=== PATIENT | female | born 1980 | race Caucasian/White ===

== ENCOUNTER 2017-02-06 17:00 | Inpatient (IN) | payer MEDICAID ==
[2017-02-06] MEDS ORDERED: HOME MEDICATION LIST NEEDED 1 EA EACH MISC ONE (17:52)
[2017-02-06] MEDS ORDERED: OXYTOCIN/NORMAL SALINE 30 UNIT/500 ML BAG IV SCH ×2 (17:52→19:00)
[2017-02-06] MEDS ORDERED: FENTANYL 100 MCG/2 ML VIAL IV ONE (17:52)
[2017-02-06] MEDS ORDERED: LIDOCAINE HCL/PF 1% 30 ML VIAL SUBCUT PRN (17:52)
[2017-02-06] MEDS ORDERED: MISOPROSTOL 200 MCG TABLET PO PRN (17:52)
[2017-02-06] MEDS ORDERED: TERBUTALINE SULFATE 1 MG/ML VIAL SQ PRN (18:48)
[2017-02-06] MEDS ORDERED: LACTATED RINGERS 1,000 ML IV SCH (19:00)
--- NOTE | 2017-02-06 19:04 | PROGRESS NOTE:Antepartum ---
Assessment and Plan - Date of Encounter Date of Encounter: 02/06/17 (1) Post term , 41 weeks Status: Acute Assessment and plan: Pt has reactive NST at 41 1/7weeks. She has been educated about post term and she is comfortable with induction. NST yesterday was reactive. Garg score was 9 and favorable for Pit induction. 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 Uncomplicated . She transferred care at 36 weeks. Had late U/S at 35 weeks documenting good grothw as she measured 2 cm less than dates consistently. EDC by 8 week U/S. 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
[2017-02-06] MEDS: LACTATED RINGERS 1,000 ML IV ONE ×2 (19:20→22:36)
[2017-02-06 19:55] LABS: RED BLOOD COUNT 4.34 X 10^6uL (4.20-6.10); WHITE BLOOD COUNT 9.7 X 10^3uL (3.9-10.7)
[2017-02-06 19:56] LABS: HEMATOCRIT 38.9 % (36.0-48.0); HEMOGLOBIN 13.1 g/dL (12.0-16.0); MEAN CORPUS. HGB CONCENTRATION 33.6 g/dL (32.0-36.0); MEAN CORPUSCULAR HEMOGLOBIN 30.2 pg (29.0-35.0); PLATELET COUNT 231 X 10^3uL (130-440); RED CELL DISTRIBUTION WIDTH 13.5 % (11.5-14.5)
[2017-02-06 19:57] LABS: BASOPHIL# 0.1 X 10^3uL (0.0-0.1); BASOPHILS 0.6 % (0.0-2.0); EOSINOPHILS 1.3 % (0.0-6.0); EOSINOPHILS# 0.1 X 10^3uL (0.0-0.4); LYMPHOCYTES 23.8 % (20.0-40.0); LYMPHOCYTES# 2.3 X 10^3uL (0.8-3.8); MEAN PLATELET VOLUME 8.4 fL (7.4-10.4); MONOCYTES 7.3 % (2.0-10.0); MONOCYTES# 0.7 X 10^3uL (0.2-1.0); NEUTROPHILS# 6.5 X 10^3uL (2.6-6.7)
[2017-02-06] MEDS: ONDANSETRON HCL 4 MG/2 ML VIAL IV PRN (21:59)
[2017-02-06 22:06] LABS: ABO GROUP TYPE O; ANTIBODY SCREEN NEGATIVE; RH TYPE POSITIVE
--- NOTE | 2017-02-06 22:06 | PROGRESS NOTE:Antepartum ---
Assessment and Plan - Date of Encounter Date of Encounter: 02/06/17 (1) Post term , 41 weeks Status: Acute Assessment and plan: Pt has reactive NST at 41 1/7weeks. She has been educated about post term and she is comfortable with induction. NST yesterday was reactive. Garg score was 9 and favorable for Pit induction. 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 Uncomplicated . She transferred care at 36 weeks. Had late U/S at 35 weeks documenting good growth as she measured 2 cm less than dates consistently. EDC by certain LMP EDC of and confirmed with 8 week U/S. PRENATALS: O+, Ab screen neg, RI, GC Neg, H/H .7 HIV NR, Hep B neg, GC, CT neg. GBS NEG., CF neg carrier, Nl trisomy screen. MSAFP Neg, 1` hour GTT 127, PAP HPV neg 2015 EDC by 8 11/2302/01/17 Adacel 12/06/16. Flu ? PMHX: None PSHX: Appy SHX: No TOB, ETOH, MJ, IVDA, BF Gómez FHX: Mom CAD at 74, HTN. Dad Skin [place] Antepartum ROS: contractions (rare), movement normal, no vaginal bleeding , no loss of fluid, no headache, no shortness of breath, no swelling HAND CLIPPER: Antepartum PN Obj Exam - Latest Vital Signs and I&O Latest Vital Signs/I&O: Vital Signs Temp 36.5 C 02/06/17 20:55 Pulse 69 02/06/17 20:55 Resp 18 02/06/17 20:55 BP 118/78 02/06/17 20:55 Pulse Ox 98 02/06/17 17:05 Intake & Output 02/06/17 02/06/17 02/07/17 05:59 17:59 05:59 Intake Total 125 Output Total 650 Balance -525 Weight 66.678 kg 66.678 kg Intake: IV 125 Lr 1000 ml Bag 1,000 ml 125 UD IV .[facility] ONE Rx#: [id number] Output: Urine 650 Other: Urine Appearance Clear Urine Color Pale Yellow Voiding Method Toilet # Voids 1 - Exam Heart Monitor: category I Lungs: Bilateral: normal Heart Rhythm: Present: regular Heart sounds: Absent: [place] Extremities: Absent: edema Fundal height (cm): 38 Cervical Dilatation Degree: 1 Cervical Effacement Percentage: 90 Station: -1 - Lab Labs: Laboratory Last Values WBC 9.7 X 10^3uL (3.9-10.7) 02/06/17 18:50 RBC 4.34 X 10^6uL (4.20-6.10) 02/06/17 18:50 Hgb 13.1 g/dL (12.0-16.0) 02/06/17 18:50 Hct 38.9 % (36.0-48.0) 02/06/17 18:50 MCV 90.0 fL (80.0-100.0) 02/06/17 18:50 MCH 30.2 pg (29.0-35.0) 02/06/17 18:50 MCHC 33.6 g/dL (32.0-36.0) 02/06/17 18:50 RDW 13.5 % (11.5-14.5) 02/06/17 18:50 Plt Count 231 X 10^3uL (130-440) 02/06/17 18:50 MPV 8.4 fL (7.4-10.4) 02/06/17 18:50 Neutrophils % 67.0 % (54.0-75.0) 02/06/17 18:50 Lymphocytes % 23.8 % (20.0-40.0) 02/06/17 18:50 Eosinophils % 1.3 % (0.0-6.0) 02/06/17 18:50 Basophils % 0.6 % (0.0-2.0) 02/06/17 18:50 Neutrophils # 6.5 X 10^3uL (2.6-6.7) 02/06/17 18:50 Lymphocytes # 2.3 X 10^3uL (0.8-3.8) 02/06/17 18:50 Monocytes 7.3 % (2.0-10.0) 02/06/17 18:50 Monocytes # 0.7 X 10^3uL (0.2-1.0) 02/06/17 18:50 Eosinophils # 0.1 X 10^3uL (0.0-0.4) 02/06/17 18:50 Basophils # 0.1 X 10^3uL (0.0-0.1) 02/06/17 18:50
[2017-02-06] MEDS ORDERED: FENTANYL 100 MCG/2 ML VIAL ONE (22:17)
[2017-02-06] MEDS ORDERED: EPHEDrine SULFATE 50 MG/ML VIAL ONE (22:17)
[2017-02-06] MEDS ORDERED: ROPIVACAINE HCL IN 0.9%NACL/PF 120 MG/60 ML SYRINGE ONE (22:18)
[2017-02-06] MEDS ORDERED: TERBUTALINE SULFATE 1 MG/ML VIAL ONE (22:45)
[2017-02-06] MEDS ORDERED: PHENYLEPHRINE HCL 10,000 MCG/ML VIAL ONE (22:45)
[2017-02-06] MEDS ORDERED: EPHEDrine SULFATE 50 MG/ML VIAL IV PRN (23:12)
[2017-02-06] MEDS ORDERED: PHENYLEPHRINE HCL 10,000 MCG/ML VIAL IV PRN (23:12)
[2017-02-06] MEDS ORDERED: NALBUPHINE HCL 10 MG/ML AMP IV PRN (23:12)
--- NOTE | 2017-02-06 23:34 | PROGRESS NOTE:Antepartum ---
Assessment and Plan - Date of Encounter Date of Encounter: 02/06/17 (1) Post term , 41 weeks Status: Acute Assessment and plan: EArly active Labor. Will resume pit prn. AFTER SROM of clear fluid ctx have increased in intensity. Expect terbulatine effects are worn off and will see if ctx pattern remains adequate. 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 Patient now comfortable. I did stop pitocin and give single dose of terb due to pain and inability of pt to cooperate positioning. Ctx now back to to q 3-4 minutes w/o pit. History: 36 yo at 41 1/7 here for induction. Uncomplicated . She transferred care at 36 weeks. Had late U/S at 35 weeks documenting good growth as she measured 2 cm less than dates consistently. EDC by certain LMP EDC of and confirmed with 8 week U/S. PRENATALS: O+, Ab screen neg, RI, GC Neg, H/H 1441.7 HIV NR, Hep B neg, GC, CT neg. GBS NEG., CF neg carrier, Nl trisomy screen. MSAFP Neg, 1` hour GTT 127, PAP HPV neg 2016 EDC by 8 11/2302/01/17 Adacel 12/06/16. Flu ? PMHX: None PSHX: Appy SHX: No TOB, ETOH, MJ, IVDA, BF Gómez FHX: Mom CAD at 74, HTN. 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 Obj Exam - Latest Vital Signs and I&O Latest Vital Signs/I&O: Vital Signs Temp 36.7 C 02/06/17 22:00 Pulse 86 02/06/17 23:05 Resp 16 02/06/17 23:05 BP 113/77 02/06/17 23:05 Pulse Ox 97 02/06/17 23:05 Intake & Output 02/06/17 02/06/17 02/07/17 05:59 17:59 05:59 Intake Total 1125 Output Total 650 Balance 475 Weight 66.678 kg 66.678 kg Intake: IV 1125 Lr 1000 ml Bag 1,000 ml 1125 UD IV .[employer] ONE Rx#: [id number] Output: Urine 650 Other: Urine Appearance Clear Urine Color Pale Yellow Voiding Method Toilet # Voids 1 - Exam Heart Monitor: category I Lungs: Bilateral: normal Heart Rhythm: Present: regular Heart sounds: Absent: [place] Extremities: Absent: edema Cervical Dilatation Degree: 3 Cervical Effacement Percentage: 100 Station: -1 - Lab Labs: Laboratory Last Values WBC 9.7 X 10^3uL (3.9-10.7) 02/06/17 18:50 RBC 4.34 X 10^6uL (4.20-6.10) 02/06/17 18:50 Hgb 13.1 g/dL (12.0-16.0) 02/06/17 18:50 Hct 38.9 % (36.0-48.0) 02/06/17 18:50 MCV 90.0 fL (80.0-100.0) 02/06/17 18:50 MCH 30.2 pg (29.0-35.0) 02/06/17 18:50 MCHC 33.6 g/dL (32.0-36.0) 02/06/17 18:50 RDW 13.5 % (11.5-14.5) 02/06/17 18:50 Plt Count 231 X 10^3uL (130-440) 02/06/17 18:50 MPV 8.4 fL (7.4-10.4) 02/06/17 18:50 Neutrophils % 67.0 % (54.0-75.0) 02/06/17 18:50 Lymphocytes % 23.8 % (20.0-40.0) 02/06/17 18:50 Eosinophils % 1.3 % (0.0-6.0) 02/06/17 18:50 Basophils % 0.6 % (0.0-2.0) 02/06/17 18:50 Neutrophils # 6.5 X 10^3uL (2.6-6.7) 02/06/17 18:50 Lymphocytes # 2.3 X 10^3uL (0.8-3.8) 02/06/17 18:50 Monocytes 7.3 % (2.0-10.0) 02/06/17 18:50 Monocytes # 0.7 X 10^3uL (0.2-1.0) 02/06/17 18:50 Eosinophils # 0.1 X 10^3uL (0.0-0.4) 02/06/17 18:50 Basophils # 0.1 X 10^3uL (0.0-0.1) 02/06/17 18:50 ABO Group Type o 02/06/17 18:50 Rh Factor Positive 02/06/17 18:50 Antibody Screen Negative 02/06/17 18:50
[2017-02-07] MEDS ORDERED: LACTATED RINGERS 1,000 ML IV SCH
--- NOTE | 2017-02-07 00:55 | PROGRESS NOTE:Antepartum ---
Assessment and Plan - Date of Encounter Date of Encounter: 02/07/17 (1) Post term , 41 weeks Status: Acute Assessment and plan: Patient has not had any significant change. Will go ahead and restart Pitocin. 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 Patient now comfortable. I did stop pitocin and give single dose of terb due to pain and inability of pt to cooperate positioning. Ctx now back to to q 3-4 minutes w/o pit. History: 36 yo at 41 07/26 here for induction. Uncomplicated . She transferred care at 36 weeks. Had late U/S at 35 weeks documenting good growth as she measured 2 cm less than dates consistently. EDC by certain LMP EDC of and confirmed with 8 week U/S. PRENATALS: O+, Ab screen neg, RI, GC Neg, H/H .7 HIV NR, Hep B neg, GC, CT neg. GBS NEG., CF neg carrier, Nl trisomy screen. MSAFP Neg, 1` hour GTT 127, PAP HPV neg 2015 EDC by 8 11/2302/01/17 Adacel 12/06/16. Flu ? PMHX: None PSHX: Appy SHX: No TOB, ETOH, MJ, IVDA, BF Gómez FHX: Mom CAD at 74, HTN. 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 PN Obj Exam - Latest Vital Signs and I&O Latest Vital Signs/I&O: Vital Signs Temp 36.5 C 02/07/17 00:00 Pulse 63 02/07/17 00:00 Resp 16 02/07/17 00:00 BP 110/69 02/07/17 00:00 Pulse Ox 94 02/07/17 00:00 Intake & Output 02/06/17 02/06/17 02/07/17 05:59 17:59 05:59 Intake Total 1125 Output Total 850 Balance 275 Weight 66.678 kg 66.678 kg Intake: IV 1125 Lr 1000 ml Bag 1,000 ml 1125 UD IV .[facility] ONE Rx#: [id number] Output: Urine 850 Uretheral ([place]) 200 Other: Urine Appearance Clear Urine Color Pale Yellow Uretheral ([place]) Pale Yellow Voiding Method Toilet # Voids 1 - Exam Heart Monitor: category I Lungs: Bilateral: normal Heart Rhythm: Present: regular Heart sounds: Absent: [place] Extremities: Absent: edema Cervical Dilatation Degree: 3 Cervical Effacement Percentage: 100 Station: -1 - Lab Labs: Laboratory Last Values WBC 9.7 X 10^3uL (3.9-10.7) 02/06/17 18:50 RBC 4.34 X 10^6uL (4.20-6.10) 02/06/17 18:50 Hgb 13.1 g/dL (12.0-16.0) 02/06/17 18:50 Hct 38.9 % (36.0-48.0) 02/06/17 18:50 MCV 90.0 fL (80.0-100.0) 02/06/17 18:50 MCH 30.2 pg (29.0-35.0) 02/06/17 18:50 MCHC 33.6 g/dL (32.0-36.0) 02/06/17 18:50 RDW 13.5 % (11.5-14.5) 02/06/17 18:50 Plt Count 231 X 10^3uL (130-440) 02/06/17 18:50 MPV 8.4 fL (7.4-10.4) 02/06/17 18:50 Neutrophils % 67.0 % (54.0-75.0) 02/06/17 18:50 Lymphocytes % 23.8 % (20.0-40.0) 02/06/17 18:50 Eosinophils % 1.3 % (0.0-6.0) 02/06/17 18:50 Basophils % 0.6 % (0.0-2.0) 02/06/17 18:50 Neutrophils # 6.5 X 10^3uL (2.6-6.7) 02/06/17 18:50 Lymphocytes # 2.3 X 10^3uL (0.8-3.8) 02/06/17 18:50 Monocytes 7.3 % (2.0-10.0) 02/06/17 18:50 Monocytes # 0.7 X 10^3uL (0.2-1.0) 02/06/17 18:50 Eosinophils # 0.1 X 10^3uL (0.0-0.4) 02/06/17 18:50 Basophils # 0.1 X 10^3uL (0.0-0.1) 02/06/17 18:50 ABO Group Type o 02/06/17 18:50 Rh Factor Positive 02/06/17 18:50 Antibody Screen Negative 02/06/17 18:50
[2017-02-07] MEDS ORDERED: ROPIVACAINE HCL IN 0.9%NACL/PF 120 MG/60 ML SYRINGE ONE (03:52)
[2017-02-07] MEDS: ONDANSETRON HCL 4 MG/2 ML VIAL IV PRN (04:13)
--- NOTE | 2017-02-07 05:10 | PROGRESS NOTE:Antepartum ---
Assessment and Plan - Date of Encounter Date of Encounter: 02/07/17 (1) Post term , 41 weeks Status: Acute Assessment and plan: Excellent progress over night. Patient with excellent HINA. Has occasional pressure with CTX but no urge to push. Continue current plan. Pit off for now. Resume prn. 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 Last exam 9 cm and still has adequate frequency of ctx. Now FHT's CAT II due to earlies but with accels and good variability. Events: 21:45 SROM of clear fluid 11:00 HINA placed. History: 36 yo at 41 1/ here for induction. Uncomplicated . She transferred care at 36 weeks. Had late U/S at 35 weeks documenting good growth as she measured 2 cm less than dates consistently. EDC by certain LMP EDC of and confirmed with 8 week U/S. PRENATALS: O+, Ab screen neg, RI, GC Neg, H/H 1441.7 HIV NR, Hep B neg, GC, CT neg. GBS NEG., CF neg carrier, Nl trisomy screen. MSAFP Neg, 1` hour GTT 127, PAP HPV neg 2016 EDC by 8 11/2302/01/17 Adacel 12/06/16. Flu ? PMHX: None PSHX: Appy SHX: No TOB, ETOH, MJ, IVDA, BF Gómez FHX: Mom CAD at 74, HTN. Dad Skin [place] Patient reports: pain well controlled Antepartum ROS: contractions (q 3-4), movement normal, no vaginal bleeding (scant brown bloody show), no loss of fluid, no headache, no shortness of breath, no swelling INTEGRATION SOLUTION ARCHITECT: Antepartum PN Obj Exam - Latest Vital Signs and I&O Latest Vital Signs/I&O: Vital Signs Temp 36.5 C 02/07/17 04:00 Pulse 64 02/07/17 04:30 Resp 16 02/07/17 04:30 BP 103/65 02/07/17 04:30 Pulse Ox 95 02/07/17 04:30 Intake & Output 02/06/17 02/06/17 02/07/17 05:59 17:59 05:59 Intake Total 3485 Output Total 850 Balance 2635 Weight 66.678 kg 66.678 kg Intake: IV 3125 Lr 1000 ml Bag 1,000 ml 2125 UD IV .[facility] ONE Rx#: [id number] Right Forearm 1000 Oral 360 Output: Urine 850 Uretheral ([place]) 200 Other: Urine Appearance Clear Urine Color Pale Yellow Uretheral ([place]) Pale Yellow Voiding Method Toilet # Voids 1 - Exam Heart Monitor: category II Lungs: Bilateral: normal Heart Rhythm: Present: regular Heart sounds: Absent: [place] Extremities: Absent: edema Cervical Dilatation Degree: 9 Cervical Effacement Percentage: 100 Station: 0 - Lab Labs: Laboratory Last Values WBC 9.7 X 10^3uL (3.9-10.7) 02/06/17 18:50 RBC 4.34 X 10^6uL (4.20-6.10) 02/06/17 18:50 Hgb 13.1 g/dL (12.0-16.0) 02/06/17 18:50 Hct 38.9 % (36.0-48.0) 02/06/17 18:50 MCV 90.0 fL (80.0-100.0) 02/06/17 18:50 MCH 30.2 pg (29.0-35.0) 02/06/17 18:50 MCHC 33.6 g/dL (32.0-36.0) 02/06/17 18:50 RDW 13.5 % (11.5-14.5) 02/06/17 18:50 Plt Count 231 X 10^3uL (130-440) 02/06/17 18:50 MPV 8.4 fL (7.4-10.4) 02/06/17 18:50 Neutrophils % 67.0 % (54.0-75.0) 02/06/17 18:50 Lymphocytes % 23.8 % (20.0-40.0) 02/06/17 18:50 Eosinophils % 1.3 % (0.0-6.0) 02/06/17 18:50 Basophils % 0.6 % (0.0-2.0) 02/06/17 18:50 Neutrophils # 6.5 X 10^3uL (2.6-6.7) 02/06/17 18:50 Lymphocytes # 2.3 X 10^3uL (0.8-3.8) 02/06/17 18:50 Monocytes 7.3 % (2.0-10.0) 02/06/17 18:50 Monocytes # 0.7 X 10^3uL (0.2-1.0) 02/06/17 18:50 Eosinophils # 0.1 X 10^3uL (0.0-0.4) 02/06/17 18:50 Basophils # 0.1 X 10^3uL (0.0-0.1) 02/06/17 18:50 ABO Group Type o 02/06/17 18:50 Rh Factor Positive 02/06/17 18:50 Antibody Screen Negative 02/06/17 18:50
--- NOTE | 2017-02-07 08:52 | PROCEDURE NOTE: Vaginal Del ---
OB Procedure Vaginal Delivery - Vaginal Delivery Estimated Gestational Age (weeks): 41 Delivery Presentation: vertex Delivery Position: TRAE Heart Monitor: category II Intrapartum Events: meconium Delivery Induction: oxytocin Delivery Augmentation: pitocin Amniotic Fluid: meconium, SROM (initially there was copious clear but then about 8 cm Meconium was noted, thick MEC at delivery) Delivery Monitor: external FHT, external uterine Shoulders: without difficulty Placenta delivered: yes Delivery Placenta: spontaneous Delivery Cord: 3 Vessels Nuchal Cord # of Loops: 0 Cord clamped: Yes Cord blood obtained: Yes Episiotomy: none Delivery Laceration: other (midline vaginal), 1st degree Suture Type for Laceration Repair: 3.0 Vicryl at 1 minute: 9 at 5 minutes: 9 Gender: Female Estimate Blood Loss Delivery: 200cc Anesthesia: Epidural Patient tolerated procedure: well, no complications Delivery Complications: Present: meconium Additional comments: 36 now 1 presented at 41 1/7 for elective induction for post dates. She had a arnett score of 9 so Pitocin induction was initiated. She had spontaneous rupture of membranes at 3 cm. 10 hours prior to delivery. She remained afebrile throughout. She had a few episodes of variables into the 90s with occasional Late decelerations but had good variability. These responded to position changes and discontinuation of Pitocin. It was restarted again twice in labor but she went from 8 cm to delivery without the addition of Pitocin. She received an epidural shortly after spontaneous rupture and had difficult placement but once it was in she had excellent relief. The first stage of labor lasted approximately 10 hours. Her second stage of labor lasted 2-1/2 hours. She labored down for the first 90 minutes and pushed for only the last hour. She had an infant on the perineum for almost 45 minutes but heart tones were reassuring and I did not feel the need for intervention. The infant delivered in a straight OA position. She was vigorous with a spontaneous cry before I could place her on the abdomen. I wiped her mouth with a cloth and bulb suction she was coded and meconium. The nurse chemical dependency had been called in and was in attendance for the entire pushing stage of labor. The cord was clamped twice by me and cut by the father. He did take the baby to the warmer for some routine dry and stem and as a precaution that she had Apgars of 9 and 9. Third stage of labor was approximately 10 minutes. The placenta delivered spontaneously intact with a three-vessel cord and meconium staining noted. A first-degree midline laceration was repaired with 3-0 Vicryl. There were no other labial or vaginal lacerations. The cervix was inspected and normal. The fundus remained firm. Estimated blood loss was 200 cc.
[2017-02-07] MEDS ORDERED: WITCH HAZEL 1 EACH MED..PAD TP PRN (09:08)
[2017-02-07] MEDS ORDERED: LANOLIN CREAM 1 APP/7 GM TUBE TOPICAL PRN (09:08)
[2017-02-07] MEDS ORDERED: BENZOCAINE/LANOLIN/ALOE 1 SPRAY BOTTLE TP PRN (09:08)
[2017-02-07] MEDS ORDERED: HC ACETATE/PRAMOXINE HCL FOAM 1 APPLIC APP RC PRN (09:08)
[2017-02-07] MEDS ORDERED: DIPHENHYDRAMINE 25 MG CAPSULE PO PRN (09:08)
[2017-02-07] MEDS ORDERED: MAGNESIUM HYDROXIDE 30 ML UDC PO PRN (09:08)
[2017-02-07] MEDS ORDERED: ACETAMINOPHEN 325 MG TABLET PO PRN (09:08)
[2017-02-07] MEDS: IBUPROFEN 600 MG TABLET PO PRN ×2 (11:28→21:26)
[2017-02-07] MEDS: DOCUSATE SODIUM 100 MG CAPSULE PO SCH ×2 (21:22→21:26)
[2017-02-08 01:12] VITALS: RESP 16; O2SAT 95
[2017-02-08 07:29] LABS: HEMATOCRIT 30.9 % (36.0-48.0); HEMOGLOBIN 10.4 g/dL (12.0-16.0)
[2017-02-08] MEDS: DOCUSATE SODIUM 100 MG CAPSULE PO SCH (09:21)
[2017-02-08] MEDS: IBUPROFEN 600 MG TABLET PO PRN (09:22)
--- NOTE | 2017-02-08 09:26 | PROGRESS NOTE:Vaginal Delivery ---
Assessment and Plan - Date of Encounter Date of Encounter: 02/08/17 (1) Post term , 41 weeks Status: Acute Assessment and plan: doing well. Planned d/c to home today. 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 No complications. Baby looked pale on Mom but pulse Ox was normal and not tacchycardic, tachypneic, hypotensive and no blood loss but will check CBC to ensure for anemia. No risk factors. I think it is just baby's skin color. Seems more pink today. Mom is doing well. No significant Nipple pain. No clots. Bleeding decreased. History: 36 yo at 41 07/26 here for induction. Uncomplicated . She transferred care at 36 weeks. Had late U/S at 35 weeks documenting good growth as she measured 2 cm less than dates consistently. EDC by certain LMP EDC of and confirmed with 8 week U/S. PRENATALS: O+, Ab screen neg, RI, GC Neg, H/H .7 HIV NR, Hep B neg, GC, CT neg. GBS NEG., CF neg carrier, Nl trisomy screen. MSAFP Neg, 1` hour GTT 127, PAP HPV neg 2016 EDC by 8 11/2302/01/17 Adacel 12/06/16. Flu ? PMHX: None PSHX: Appy SHX: No TOB, ETOH, MJ, IVDA, BF Gómez FHX: Mom CAD at 74, HTN. 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: Vag Del PN Obj Exam - Latest Vital Signs and I&O Latest Vital Signs/I&O: Vital Signs Temp 36.4 C L 02/08/17 01:00 Pulse 72 02/08/17 01:00 Resp 16 02/08/17 01:00 BP 116/84 02/08/17 01:00 Pulse Ox 95 02/08/17 01:00 Intake & Output 02/07/17 02/08/17 02/08/17 17:59 05:59 17:59 Output Total 1800 1000 Balance -1800 -1000 Weight 66.678 kg Output: Urine 1800 1000 Uretheral ([place]) 200 Other: Urine Appearance Clear Clear Urine Color Yellow Yellow Light Olga Uretheral ([place]) Yellow Straw Voiding Method Toilet Toilet # Voids 1 - Exam Lungs: Bilateral: normal Heart Rhythm: Present: regular Heart sounds: Absent: [place] Uterus: Present: firm, non tender - Lab Labs: Laboratory Last Values WBC 9.7 X 10^3uL (3.9-10.7) 02/06/17 18:50 RBC 4.34 X 10^6uL (4.20-6.10) 02/06/17 18:50 Hgb 10.4 g/dL (12.0-16.0) L 02/08/17 07:01 Hct 30.9 % (36.0-48.0) L 02/08/17 07:01 MCV 90.0 fL (80.0-100.0) 02/06/17 18:50 MCH 30.2 pg (29.0-35.0) 02/06/17 18:50 MCHC 33.6 g/dL (32.0-36.0) 02/06/17 18:50 RDW 13.5 % (11.5-14.5) 02/06/17 18:50 Plt Count 231 X 10^3uL (130-440) 02/06/17 18:50 MPV 8.4 fL (7.4-10.4) 02/06/17 18:50 Neutrophils % 67.0 % (54.0-75.0) 02/06/17 18:50 Lymphocytes % 23.8 % (20.0-40.0) 02/06/17 18:50 Eosinophils % 1.3 % (0.0-6.0) 02/06/17 18:50 Basophils % 0.6 % (0.0-2.0) 02/06/17 18:50 Neutrophils # 6.5 X 10^3uL (2.6-6.7) 02/06/17 18:50 Lymphocytes # 2.3 X 10^3uL (0.8-3.8) 02/06/17 18:50 Monocytes 7.3 % (2.0-10.0) 02/06/17 18:50 Monocytes # 0.7 X 10^3uL (0.2-1.0) 02/06/17 18:50 Eosinophils # 0.1 X 10^3uL (0.0-0.4) 02/06/17 18:50 Basophils # 0.1 X 10^3uL (0.0-0.1) 02/06/17 18:50 ABO Group Type o 02/06/17 18:50 Rh Factor Positive 02/06/17 18:50 Antibody Screen Negative 02/06/17 18:50
[2017-02-08 09:41] VITALS: BP 106/74; PULSE 70; TEMP 97.3
== END 2017-02-08 09:41 | disposition home or self-care (01) | DRG 775 ==
LOC: NLCPRO 17:00 → NLC 17:02
PROVIDERS: ADMIT Family Medicine; ATTEND Family Medicine
PROC: 10E0XZZ Delivery of Products of Conception, External Approach (ICD-10-PCS; principal; 2017-02-06)
PROC: 0HQ9XZZ Repair Perineum Skin, External Approach (ICD-10-PCS; principal; 2017-02-06)
DX: O70.0 First degree perineal laceration during delivery (principal); O77.0 Labor and delivery complicated by meconium in amniotic fluid; Z3A.41 41 weeks gestation of pregnancy; Z37.0 Single live birth
CPT/HCPCS: 36415; 85014; 85018; 85025; 86592; 86850; 86900; 86901; J2370; J2405; J2795; J3010; J3105; J7120